=== PATIENT | male | born 1945 | race Native Hawaiian/Other Pacific Islander ===

== ENCOUNTER → 2021-05-22 | Outpatient (CLI) | payer OTHER ==
[~2021-05-22] MED LIST: CADUET10 MG/10 M PO; ZANTAC 75 PO; ZESTRIL40 MG PO
== END ==
LOC: MRI 10:00 → CT 10:30 → MRI 11:00
PROVIDERS: ATTEND Nurse Practitioner Family
DX: R47.81 Slurred speech (principal); R53.1 Weakness; R13.19 Other dysphagia; K86.2 Cyst of pancreas

== ENCOUNTER 2021-09-13 08:24 | Outpatient (CLI) | payer OTHER | END 2021-09-13 22:59 | disposition home or self-care (01) | LOC: LAB 08:24 | PROVIDERS: ATTEND Nurse Practitioner Family | DX: Z20.822 Contact with and (suspected) exposure to COVID-19 (principal); J02.9 Acute pharyngitis, unspecified; R09.81 Nasal congestion | CPT/HCPCS: 87635; U0003 ==

== ENCOUNTER 2022-07-18 16:17 | Emergency (ER) | payer OTHER ==
[~2022-07-18] VITALS: Ht 182.9 cm; Wt 98.9 kg
[2022-07-18 17:03] LABS: PLATELET COUNT 145 K/uL (142-355)
[2022-07-18 17:25] LABS: PARTIAL THROMBOPLASTIN TIME 28.8 SECONDS (24.5-33.6)
[2022-07-18 17:39] LABS: POTASSIUM 3.7 mmol/L (3.6-5.2)
[2022-07-18 19:15] VITALS: BP 156/88; TEMP 98
== END 2022-07-18 19:15 | disposition home or self-care (01) ==
LOC: ED 16:17
PROVIDERS: Emergency Medicine
DX: R20.0 Anesthesia of skin (principal); I48.91 Unspecified atrial fibrillation
CPT/HCPCS: 80053; 84484; 85027; 85610; 85730; 93005; 99282

== ENCOUNTER 2022-11-16 11:38 | Emergency (ER) | payer OTHER ==
[~2022-11-16] VITALS: Ht 182.9 cm; Wt 95.3 kg
[2022-11-16 11:50] VITALS: BP 153/94; TEMP 98.1
[2022-11-16] MEDS ORDERED: EUTHYROX50 MCG PO (12:19)
[2022-11-16] MEDS ORDERED: ELIQUIS5 MG PO (12:20)
[2022-11-16] MEDS ORDERED: AMLODIPINE BESYLATE PO (12:20)
== END 2022-11-16 12:45 | disposition home or self-care (01) ==
LOC: ED 11:38
DX: M54.12 Radiculopathy, cervical region (principal)
CPT/HCPCS: 96372; 99282; J1100; J1885

== ENCOUNTER 2022-12-07 17:33 | Observation (INO) | payer OTHER ==
[~2022-12-07] VITALS: Ht 180.3 cm; Wt 82.6 kg
[~2022-12-07 17:33] MED LIST changes: +AMLODIPINE BESYLATE PO; +ELIQUIS5 MG PO; +EUTHYROX50 MCG PO
[2022-12-07 17:37] VITALS: BP 113/75; TEMP 98.3
[2022-12-07 18:40] LABS: PLATELET COUNT 154 K/uL (142-355)
[2022-12-07 18:43] LABS: POTASSIUM 4.2 mmol/L (3.6-5.2)
[2022-12-07 20:17] LABS: PARTIAL THROMBOPLASTIN TIME 29.7 SECONDS (24.5-33.6)
[2022-12-07 21:52] VITALS: BP 123/73; TEMP 97.5; Ht 180.3 cm; Wt 82.6 kg
[2022-12-08] VITALS: BP 135/77; TEMP 98.4
[2022-12-08 03:40] VITALS: BP 97/59; TEMP 98.5
[2022-12-08 05:43] LABS: PLATELET COUNT 138 K/uL (142-355)
[2022-12-08 06:06] LABS: POTASSIUM 3.6 mmol/L (3.6-5.2)
[2022-12-08 08:00] VITALS: BP 114/69; TEMP 98
[2022-12-08] MEDS ORDERED: COZAAR100 MG PO (10:47)
[2022-12-08] MEDS ORDERED: EUTHYROX50 MCG PO (10:49)
[2022-12-08] MEDS ORDERED: COMBIGAN0.2 MG/0.5 OPTH (10:51)
[2022-12-08] MEDS ORDERED: LATA0.00 OPTH (10:52)
[2022-12-08] MEDS ORDERED: EQ ALLERGY REL180 MG PO (10:54)
[2022-12-08 12:00] VITALS: BP 115/84; TEMP 98.3
== END 2022-12-08 11:09 | disposition home or self-care (01) ==
LOC: ED 17:33 → MED/SURG 19:15
PROVIDERS: ADMIT Family Medicine; ATTEND Internal Medicine
DX: I48.20 Chronic atrial fibrillation, unspecified (principal); Z79.01 Long term (current) use of anticoagulants; R06.02 Shortness of breath; E86.0 Dehydration; K21.9 Gastro-esophageal reflux disease without esophagitis; M15.8 Other polyosteoarthritis; I10 Essential (primary) hypertension; J43.9 Emphysema, unspecified; N17.8 Other acute kidney failure; E11.65 Type 2 diabetes mellitus with hyperglycemia; Z51.81 Encounter for therapeutic drug level monitoring
CPT/HCPCS: 36415; 36600; 80053; 80307; 81002; 82550; 82805; 83036; 83735; 83880; 84100; 84443; 84484; 85027; 85379; 85610; 85730; 93005; 96360; 96361; 99221; 99284; G0378

== ENCOUNTER 2023-01-13 14:15 | Outpatient (CLI) | payer OTHER ==
[~2023-01-13 14:15] MED LIST changes: +COMBIGAN0.2 MG/0.5 OPTH; +COZAAR100 MG PO; +EQ ALLERGY REL180 MG PO; +LATA0.00 OPTH
== END 2023-01-13 19:04 | disposition home or self-care (01) ==
LOC: RAD 14:15
PROVIDERS: ATTEND Internal Medicine Endocrinology, Diabetes & Metabolism
DX: M25.531 Pain in right wrist (principal)

== ENCOUNTER 2023-02-23 13:23 | Emergency (ER) | payer OTHER ==
[~2023-02-23] VITALS: Ht 180.3 cm; Wt 98.9 kg
[2023-02-23 13:30] VITALS: BP 180/87; TEMP 98.3
== END 2023-02-23 17:33 | disposition home or self-care (01) ==
LOC: ED 13:23
DX: K40.90 Unilateral inguinal hernia, without obstruction or gangrene, not specified as recurrent (principal); N40.0 Benign prostatic hyperplasia without lower urinary tract symptoms; W01.0XXA Fall on same level from slipping, tripping and stumbling without subsequent striking against object, initial encounter
CPT/HCPCS: 81002; 99283